=== PATIENT | male | born 1985 | race Asian ===

== ENCOUNTER 2017-05-30 01:13 | Outpatient (CLI) | payer OTHER ==
[2017-05-30 19:27] LABS: BASOPHILS # (AUTO) 0.1 10^3/uL (0.0-0.1); BASOPHILS % (AUTO) 0.7 %; EOSINOPHILS # (AUTO) 0.2 10^3/uL (0.0-0.7); EOSINOPHILS % (AUTO) 2.4 %; HCT - HEMATOCRIT 47.8 % (42.0-52.0); HGB - HEMOGLOBIN 16.1 g/dL (14.0-18.0); LYMPHOCYTES # (AUTO) 1.1 10^3/uL (1.5-3.5); LYMPHOCYTES % (AUTO) 15.1 %; MEAN CORPUSCULAR HGB CONC 33.6 g/dL (32.0-36.0); MEAN CORPUSCULAR VOLUME 95.5 fL (80.0-94.0); MEAN PLATELET VOLUME 6.7 fL (7.4-11.4); MONOCYTES # (AUTO) 0.6 10^3/uL (0.0-1.0); MONOCYTES % (AUTO) 8.5 %; NEUTROPHILS # (AUTO) 5.6 10^3/uL (1.5-6.6); NEUTROPHILS % (AUTO) 73.3 %; NUCLEATED RED BLOOD CELLS AUTO 0.1 /100WBC; RED BLOOD COUNT 5.01 10^6/uL (4.70-6.10); RED CELL DISTRIBUTION WIDTH 12.4 % (12.0-15.0); UNCORRECTED WHITE BLOOD COUNT 7.6 x10^3/uL; WHITE BLOOD COUNT 7.6 x10^3/uL (4.8-10.8)
[2017-05-30 20:20] LABS: ALBUMIN/GLOBULIN RATIO 1.3 (1.0-2.2); BILIRUBIN,TOTAL 1.3 mg/dL (0.2-1.0); BUN - BLOOD UREA NITROGEN 15 mg/dL (6-20); CALCIUM 8.9 mg/dL (8.5-10.3); CARBON DIOXIDE - CO2 25 mmol/L (21-32); CHLORIDE 102 mmol/L (101-111); CHOL/HDL RATIO 3.5 (<5.0); CHOLESTEROL 193 mg/dL; CREATININE 0.8 mg/dL (0.6-1.2); GFR - MDRD 113 (>89); GLUCOSE 89 mg/dL (70-100); HDL CHOLESTEROL 55 mg/dL; LDL/HDL RATIO 1.9 (<3.6); POTASSIUM 3.8 mmol/L (3.5-5.0); SODIUM 135 mmol/L (135-145); TOTAL PROTEIN 7.8 g/dL (6.7-8.2); TRIGLYCERIDES 153 mg/dL; VLDL CHOLESTEROL 31 mg/dL
[2017-06-01 15:12] LABS: TREPONEMA AB IGG NEGATIVE
== END 2017-05-30 01:14 | disposition home or self-care (01) ==
LOC: LAB.WCP 01:13
PROVIDERS: ATTEND Physician Assistant Medical
DX: Z00.00 Encounter for general adult medical examination without abnormal findings (principal)
CPT/HCPCS: 36415; 80053; 80061; 84443; 85025; 86695; 86696; 86780; 86803; 87389; 87491; 87591

== ENCOUNTER 2020-01-20 13:18 | Outpatient (CLI) | payer BC ==
[~2020-01-20 13:18] MED LIST: ALBUTEROL 1 PUFF INH SCH
== END 2020-01-20 13:19 | disposition home or self-care (01) ==
LOC: RT 13:18
PROVIDERS: ATTEND Family Medicine
DX: J45.909 Unspecified asthma, uncomplicated (principal)
CPT/HCPCS: 94010

== ENCOUNTER 2022-11-16 12:25 | Outpatient (CLI) | payer BC ==
[2022-11-16 17:27] LABS: BASOPHILS # (AUTO) 0.1 10^3/uL (0.0-0.1); BASOPHILS % (AUTO) 0.8 %; EOSINOPHILS # (AUTO) 0.3 10^3/uL (0.0-0.7); EOSINOPHILS % (AUTO) 2.9 %; HCT - HEMATOCRIT 51.9 % (42.0-52.0); HGB - HEMOGLOBIN 16.9 g/dL (14.0-18.0); LYMPHOCYTES # (AUTO) 1.9 10^3/uL (1.5-3.5); LYMPHOCYTES % (AUTO) 21.9 %; MEAN CORPUSCULAR HEMOGLOBIN 30.8 pg (27.0-31.0); MEAN CORPUSCULAR HGB CONC 32.6 g/dL (32.0-36.0); MEAN CORPUSCULAR VOLUME 94.7 fL (80.0-94.0); MEAN PLATELET VOLUME 8.7 fL (7.4-11.4); MONOCYTES # (AUTO) 0.8 10^3/uL (0.0-1.0); MONOCYTES % (AUTO) 8.8 %; NEUTROPHILS # (AUTO) 5.7 10^3/uL (1.5-6.6); NEUTROPHILS % (AUTO) 64.7 %; PLT - PLATELET COUNT 429 10^3/uL (130-450); RED BLOOD COUNT 5.48 10^6/uL (4.70-6.10); RED CELL DISTRIBUTION WIDTH 11.9 % (12.0-15.0); WHITE BLOOD COUNT 8.8 x10^3/uL (4.8-10.8)
[2022-11-16 17:43] LABS: ALBUMIN 4.1 g/dL (3.2-5.5); ALBUMIN/GLOBULIN RATIO 0.9 (1.0-2.2); ALKALINE PHOSPHATASE 60 IU/L (42-121); ALT ALANINE AMINOTRANSFERASE 115 IU/L (10-60); AST ASPARTATE AMINOTRANSFERASE 55 IU/L (10-42); BILIRUBIN,TOTAL 0.9 mg/dL (0.2-1.0); BUN - BLOOD UREA NITROGEN 19 mg/dL (6-20); CARBON DIOXIDE - CO2 27 mmol/L (21-32); CHLORIDE 101 mmol/L (101-111); CHOL/HDL RATIO 4.8 (<5.0); CHOLESTEROL 244 mg/dL; CREATININE 1.1 mg/dL (0.6-1.2); GFR - MDRD 76 (>89); GLUCOSE 111 mg/dL (70-100); HDL CHOLESTEROL 51 mg/dL; LDL CHOLESTEROL,CALCULATED 163 mg/dL; LDL/HDL RATIO 3.2 (<3.6); POTASSIUM 4.3 mmol/L (3.5-5.0); SODIUM 136 mmol/L (135-145); TOTAL PROTEIN 8.8 g/dL (6.7-8.2); TRIGLYCERIDES 150 mg/dL; VLDL CHOLESTEROL 30 mg/dL
[2022-11-16 17:54] LABS: THYROID STIMULATING HORMONE 0.89 uIU/mL (0.34-5.60)
[2022-11-16 22:54] LABS: CHLAMYDIA TRACHOMATIS DNA NEGATIVE (NEGATIVE); NEISSERIA GONORRHOEAE DNA NEGATIVE (NEGATIVE); TRICHOMONAS VAGINALIS DNA NEGATIVE (NEGATIVE)
[2022-11-18 06:08] LABS: RPR Non Reactive (Non Reactive)
[2022-11-18 12:08] LABS: HSV 1 IGG TYPE SPEC <0.91 index (0.00-0.90); HSV 2 IGG TYPE SPEC <0.91 index (0.00-0.90)
[2022-11-19 01:06] LABS: HIV SCREEN 4TH GENERATION Non Reactive (Non Reactive)
[2022-11-19 03:07] LABS: HCV AB Non Reactive (Non Reactive)
== END 2022-11-16 12:26 | disposition home or self-care (01) ==
LOC: LAB.N 12:25
PROVIDERS: ATTEND Physician Assistant
DX: I10 Essential (primary) hypertension (principal); E78.6 Lipoprotein deficiency; Z11.3 Encounter for screening for infections with a predominantly sexual mode of transmission
CPT/HCPCS: 36415; 80053; 80061; 83721; 84443; 85025; 86592; 86695; 86696; 86803; 87389; 87491; 87591; 87661

== ENCOUNTER 2022-12-10 21:25 | Outpatient (CLI) | payer BC ==
--- NOTE | 2022-12-11 17:24 | Ultrasound Report ---
PROCEDURE: Abdomen Complete INDICATIONS: ABN LIVER FUNCTION TESTS TECHNIQUE: Real-time scanning was performed of the abdominal and retroperitoneal organs, with image documentatio n. COMPARISON: None. FINDINGS: Liver: Increased liver echogenicity, commonly mild hepatic steatosis. Normal size liver. Appropriate direction of portal vein flow. Gallbladder: The gallbladder is normal without stones, sludge, wall thickening, or pericholecystic fl uid. No sonographic Jansen's sign per the technologist. Biliary ducts: Intrahepatic bile ducts are non-dilated. Extrahepatic bile duct caliber measures 4.4 mm. Normal is 6-7 mm or less in diameter, or 10 mm or less post-cholecystectomy. Pancreas: The proximal portion is normal. The distal portion was not well seen due to bowel gas. Spleen: Spleen is normal in size and homogeneous in echotexture. Kidneys: Kidneys are normal in size and echotexture. Right kidney measures 12.2 cm long; left kidne y measures 12.1 cm long. No hydronephrosis. 3 mm nonobstructing right intrarenal calculus. No solid masses. No complex renal cystic lesions which require follow-up. Aorta: Visualized aorta is normal in caliber at less than 3 cm. Iliacs: Proximal common iliac arteries are normal in caliber at less than 2.5 cm. IVC: Intrahepatic inferior vena cava is patent. Miscellaneous: No free abdominal fluid. IMPRESSION: 1. Increased liver echogenicity indicating hepatic steatosis or other intrinsic liver disease. 2. Nonobstructing right renal stone. Reviewed by: Shell Walls MD on 12/11/2022 5:23 PM PDT Approved by: Shell Walls MD on 12/11/2022 5:23 PM PDT Station ID: [id number]
== END 2022-12-10 21:26 | disposition home or self-care (01) ==
LOC: DI 21:25
PROVIDERS: ATTEND Family Medicine
DX: N20.0 Calculus of kidney (principal); R94.5 Abnormal results of liver function studies

== ENCOUNTER 2024-03-07 10:22 | Emergency (ER) | payer BC ==
[2024-03-07 11:33] VITALS: O2SAT 99
--- NOTE | 2024-03-07 12:02 | XRAY Report ---
PROCEDURE: Hand 3+V RT INDICATIONS: Trauma TECHNIQUE: 3 views of the hand(s) acquired. COMPARISON: None. FINDINGS: Bones: No fractures or dislocations. No suspicious bony lesions. Soft tissues: No suspicious soft tissue calcifications or masses. IMPRESSION: No displaced fractures are seen on this plain film study. In this patient with a given history of trauma, please correlate with focal tenderness. If clinically appropriate, please consider a short-term follow-up plain films series versus a dedicated CT study. Reviewed by: Robin Guerrier MD on 03/07/2024 11:01 AM J[facility]DEN Approved by: Robin Guerrier MD on 03/07/2024 11:01 AM JAYDEN Station ID: [id number]
--- NOTE | 2024-03-07 12:26 | ED Physician Documentation ---
History of Present Illness - Stated complaint Stated Complaint: RT HAND PX,GEN WEAKNESS - Chief complaint Chief Complaint: Ext Problem - History obtained from History obtained from: Patient - History of Present Illness Timing: Prior to arrival, How many days ago (2) Pain level max: 0 Pain level now: 0 - Additonal information Additional information: Patient is a 38-year-old who presents to the emergency department with right hand pain. Patient notes 2 days ago he was at work using a wrench and felt a pop in his hand. He notes mild pain to generalized hand and some mild tingling in his palm. He has history of left shoulder surgery but no other surgeries to his hand. He has not taking anything for pain. Denies any other injuries no deformities. No significant bruising. Review of Systems Unable to obtain: Other (See pertinent ROS in HPI) PD PAST MEDICAL HISTORY - Past Medical History Past Medical History: Yes Cardiovascular: Hypertension Respiratory: Asthma - Past Surgical History Past Surgical History: Yes Ortho: Shoulder arthroplasty - Allergies Allergies/Adverse Reactions: Allergies Allergy/AdvReac Type Severity Reaction Status Date / Time No Known Drug Allergies Allergy Verified 03/07/24 10:51 - Social History Does the pt smoke?: No Smoking Status: Never smoker Does the pt drink ETOH?: Yes Does the pt have substance abuse?: No - Immunizations Immunizations are current?: Yes PD ED PE NORMAL - Vitals Vital signs reviewed: Yes (Vitals with in normal range) - General General: Alert and oriented X 3, No acute distress - Cardiac Cardiac: RRR, No murmur, No gallop, No rub - Respiratory Respiratory: No respiratory distress - Abdomen Abdomen: Normal bowel sounds - Derm Derm: Normal color, Other (No significant swelling bruising redness to the right hand appreciated. No obvious abrasions.) - Extremities Extremities: No deformity, No tenderness to palpate, Normal ROM s pain (Right hand shows no significant swelling on exam no significant bruising or deformit ies noted. Finger opposition intact strength intact at DIP and PIP joints of digits 1 through 5. Capillary refill < 3 seconds. Sensation intact distally. Radial pulse 2+ negative Tinel sign. Full range of motion of) PD Medical Decision Making - ED course Complexity details: reviewed old records ED course: Patient is a 38 year old male Presented to the emergency department with right hand pain. Patient notes he was using a wrench 2 days ago and felt a pop in his hand has had some swelling and persistent pain since then. He notes no other recent trauma. He has some occasional tingling in his hands but no loss of sensation full range of movement to right hand intact full strength at digits 1 through 5 intact. Radial pulse 2+. Finger opposition intact. While patient was in triage x-rays were obtained showing no acute fractures. Patient updated on reassuring findings he does work with his hands and is right- handed. Instructed patient to take ibuprofen 800 mg at home every 8 hours and to rest ice and elevate hand. Most likely sustained a sprain however if tingling or pain persists he should return to the emergency department. Patient was placed in Velcro wrist splint to prevent further injury. He was instructed to avoid any heavy lifting and to follow-up with his PCP in the outpatient setting. Departure - Departure Disposition: 01 Home, Self Care Clinical Impression: Pain in extremity Condition: Good Follow-Up: Hannah Gracia PA [Primary Care Provider] - Within 1 week Comments: You were seen here in the emergency department for your right hand pain your workup here was reassuring I will have you follow-up with your primary care doctor given you a splint here in the emergency department to help stabilize your hand to prevent further injury. I have given you a work note for until symptoms resolved avoid lifting or using right hand to prevent further injury. You may require physical therapy or further imaging in outpatient setting follow-up with PCP to ensure resolution of symptmos. Forms: PCP List, Activity restrictions Discharge Date/Time: 03/07/24 12:50
[2024-03-07 13:12] VITALS: BP 150/88
== END 2024-03-07 12:50 | disposition home or self-care (01) ==
LOC: ED 10:22
DX: M79.641 Pain in right hand (principal); X58.XXXA Exposure to other specified factors, initial encounter; Y93.89 Activity, other specified; Y92.89 Other specified places as the place of occurrence of the external cause; Y99.0 Civilian activity done for income or pay
CPT/HCPCS: 99283

== ENCOUNTER 2024-03-19 13:41 | Outpatient (CLI) | payer BC ==
[2024-03-19 18:01] LABS: BASOPHILS # (AUTO) 0.1 10^3/uL (0.0-0.1); EOSINOPHILS # (AUTO) 0.4 10^3/uL (0.0-0.7); HCT - HEMATOCRIT 49.7 % (42.0-52.0); HGB - HEMOGLOBIN 16.7 g/dL (14.0-18.0); LYMPHOCYTES # (AUTO) 1.8 10^3/uL (1.5-3.5); LYMPHOCYTES % (AUTO) 24.8 %; MEAN CORPUSCULAR HEMOGLOBIN 31.1 pg (27.0-31.0); MEAN CORPUSCULAR HGB CONC 33.6 g/dL (32.0-36.0); MEAN CORPUSCULAR VOLUME 92.6 fL (80.0-94.0); MEAN PLATELET VOLUME 8.5 fL (7.4-11.4); MONOCYTES # (AUTO) 0.7 10^3/uL (0.0-1.0); MONOCYTES % (AUTO) 9.2 %; NEUTROPHILS # (AUTO) 4.3 10^3/uL (1.5-6.6); NEUTROPHILS % (AUTO) 59.6 %; PLT - PLATELET COUNT 406 10^3/uL (130-450); RED BLOOD COUNT 5.37 10^6/uL (4.70-6.10); RED CELL DISTRIBUTION WIDTH 11.6 % (12.0-15.0); WHITE BLOOD COUNT 7.1 x10^3/uL (4.8-10.8)
[2024-03-19 18:11] LABS: % IRON SATURATION 29 % (20-50); ALBUMIN 4.2 g/dL (3.2-5.5); ALBUMIN/GLOBULIN RATIO 1.2 (1.0-2.2); ALKALINE PHOSPHATASE 52 IU/L (42-121); ALT ALANINE AMINOTRANSFERASE 79 IU/L (10-60); AST ASPARTATE AMINOTRANSFERASE 37 IU/L (10-42); BILIRUBIN,TOTAL 0.8 mg/dL (0.2-1.0); BUN - BLOOD UREA NITROGEN 18 mg/dL (6-20); CALCIUM 9.2 mg/dL (8.5-10.3); CARBON DIOXIDE - CO2 26 mmol/L (21-32); CHLORIDE 102 mmol/L (101-111); CHOL/HDL RATIO 6.1 (<5.0); CHOLESTEROL 243 mg/dL; CREATININE 0.9 mg/dL (0.6-1.3); GAMMA GLUTAMYL TRANSPEPTIDASE 81 IU/L (9-64); GFR - MDRD 95 (>89); GLUCOSE 114 mg/dL (74-104); HDL CHOLESTEROL 40 mg/dL; IRON 99 ug/dL (50-212); LDL CHOLESTEROL,CALCULATED 142 mg/dL; LDL/HDL RATIO 3.6 (<3.6); POTASSIUM 4.2 mmol/L (3.5-4.5); SODIUM 135 mmol/L (135-145); TOTAL IRON BINDING CAPACITY 339 ug/dL (250-450); TOTAL PROTEIN 7.8 g/dL (6.4-8.9); TRANSFERRIN 242 mg/dL (203-362); TRIGLYCERIDES 306 mg/dL; VLDL CHOLESTEROL 61 mg/dL
[2024-03-19 18:23] LABS: THYROID STIMULATING HORMONE 2.09 uIU/mL (0.34-5.60)
[2024-03-19 18:27] LABS: FERRITIN 292.2 ng/mL (23.9-336.2)
[2024-03-19 21:44] LABS: ESTIMATED AVERAGE GLUCOSE 146 mg/dL (70-100); HEMOGLOBIN A1c% 6.7 % (4.27-6.07)
[2024-03-20 04:10] LABS: HBsAG SCREEN Negative (Negative)
[2024-03-20 23:09] LABS: HCV AB Non Reactive (Non Reactive)
== END 2024-03-19 13:42 | disposition home or self-care (01) ==
LOC: LAB.N 13:41
PROVIDERS: ATTEND Physician Assistant
DX: I10 Essential (primary) hypertension (principal); E78.6 Lipoprotein deficiency; R73.01 Impaired fasting glucose; R79.89 Other specified abnormal findings of blood chemistry
CPT/HCPCS: 36415; 80053; 80061; 82728; 82977; 83036; 83540; 83721; 84443; 84466; 85025; 86317; 86704; 86709; 86803; 87340